=== PATIENT | female | born 1985 | race Caucasian/White ===

== ENCOUNTER 2017-11-25 14:05 | Emergency (ER) | payer OTHER ==
[~2017-11-25] VITALS: Ht 167.6 cm; Wt 71.2 kg
[~2017-11-25 14:05] MED LIST: HYDROCODONE-AP1 EAC6 PO; IBUPROFEN 600600 M1 PO
[2017-11-25 14:48] LABS: ABSOLUTE NEUTROPHILS 12.9 thou/uL (1.4-8.2); BASOPHILS 0.4 % (0.0-2.0); EOSINOPHILS 0.3 % (0.0-3.0); HEMATOCRIT 41.6 % (37.0-47.0); HEMOGLOBIN 14.5 gm/dL (12.0-15.0); LYMPHOCYTES 12.1 % (24.0-44.0); MCH 31.9 pg (26.0-34.0); MCHC 34.8 g/dL (28.0-37.0); MCV 91.8 fL (80.0-100.0); MONOCYTES 4.7 % (1.0-8.0); PLATELET COUNT 261 thou/uL (150-400); POLYS 82.5 % (36.0-66.0); RBC 4.53 mil/uL (4.20-5.00); RDW 12.9 % (10.5-14.5); WBC 15.6 thou/uL (4.0-11.0)
[2017-11-25 15:04] LABS: CALCIUM 9.3 mg/dL (8.5-10.1); CREATININE 0.6 mg/dL (0.6-1.0); POTASSIUM 3.8 mmol/L (3.5-5.1)
== END 2017-11-25 18:48 | disposition home or self-care (01) ==
LOC: ER 14:05
PROVIDERS: Emergency Medicine
DX: O03.9 Complete or unspecified spontaneous abortion without complication (principal); J45.909 Unspecified asthma, uncomplicated; Z88.1 Allergy status to other antibiotic agents; Z88.6 Allergy status to analgesic agent; Z3A.13 13 weeks gestation of pregnancy